=== PATIENT | female | born 1960 | race Caucasian/White ===

== ENCOUNTER → 2016-11-27 | Outpatient (REF) ==
[2016-11-27 18:35] LABS: BASOPHILS % (AUTO) 0 % (0-2); EOSINOPHILS % (AUTO) 0 % (0-4); MEAN CORPUSCULAR HEMOGLOBIN 29.3 PG (26.0-34.0); MEAN CORPUSCULAR VOLUME 84 FL (80-100); MONOCYTES # (AUTO) 0.7 X10^3; MONOCYTES % (AUTO) 6 % (3-11); NEUTROPHILS # (AUTO) 7.5 X10^3; NEUTROPHILS % (AUTO) 73 % (51-67); PLATELET COUNT 365 10^3uL (150-450); WHITE BLOOD COUNT 10.25 10^3uL (4.0-11.0)
[2016-11-27 18:43] LABS: ALBUMIN 4.8 g/dL (3.4-5.0); ANION GAP 16.1 MEQ/L (3-15); CALCULATED IONIZED CALCIUM 4.4 mg/dL (3.8-4.6); TOTAL PROTEIN 7.6 g/dL (6.4-8.5)
== END ==
LOC: LAB 16:50
PROVIDERS: ATTEND Nurse Practitioner Family
DX: Z01.419 Encounter for gynecological examination (general) (routine) without abnormal findings (principal); I10 Essential (primary) hypertension
CPT/HCPCS: 80053; 80061; 85025

== ENCOUNTER → 2016-11-28 | Outpatient (CLI) | payer BC ==
[2016-11-28 16:49] LABS: BILIRUBIN,URINE Negative (Negative); CLARITY,URINE Clear; COLOR,URINE Yellow; GLUCOSE, URINE (UA) Negative (Negative); LEUKOCYTE ESTERASE, URINE Trace (Negative); UROBILINOGEN,URINE 0.2 mg/dL (0.2-1.0)
[2016-11-28 17:14] LABS: RBC,URINE None Seen /HPF; URINE CENTRIFUGED VOLUME 10 mL
== END ==
LOC: LAB 16:35
PROVIDERS: ATTEND Nurse Practitioner Family
DX: Z01.419 Encounter for gynecological examination (general) (routine) without abnormal findings (principal); I10 Essential (primary) hypertension
CPT/HCPCS: 81003; 81015

== ENCOUNTER → 2016-12-01 | Outpatient (CLI) | payer BC | LOC: RAD 07:41 | PROVIDERS: ATTEND Nurse Practitioner Family | DX: Z12.31 Encounter for screening mammogram for malignant neoplasm of breast (principal); R16.0 Hepatomegaly, not elsewhere classified | CPT/HCPCS: 74170; G0202; Q9967 ==

== ENCOUNTER → 2016-12-11 | Outpatient (REF) | payer BC ==
[2016-12-11 17:27] LABS: ANION GAP 17.2 MEQ/L (3-15)
== END ==
LOC: LAB 16:56
PROVIDERS: ATTEND Nurse Practitioner Family
DX: I10 Essential (primary) hypertension (principal)
CPT/HCPCS: 80048